=== PATIENT | female | born 1965 | race Caucasian/White ===

== ENCOUNTER 2019-08-02 13:26 | Outpatient (CLI) | payer OTHER, SELFPAY ==
--- NOTE | ~2019-08-02 | MM_ITS ---
EXAMINATION: MM screening tawana BI w arcenio HISTORY: Screening mammogram TECHNIQUE: Craniocaudal and mediolateral oblique 3-D tomosynthesis images were obtained and synthetic 2-D images were generated. CAD analysis was submitted and interpreted. COMPARISON: 08/09/2011, 07/03/2010 bilateral digital screening mammogram examinations BREAST PARENCHYMAL COMPOSITION: The breasts are heterogeneously dense, which may obscure small masses . FINDINGS: There is an approximately 8 x 10 mm low-density circumscribed mass in the inner aspect of t he lower outer quadrant of the left breast (craniocaudal Tomosynthesis image /; MLO Tomosynthesis image /). Diagnostic left mammogram and left breast ultrasound examination are recommended. Otherwise there Is no evidence of suspicious mass, calcification, or architectural distortion to sugg est malignancy in either breast. There has been no other significant interval change. IMPRESSION: 1. 8 x 10 mm lower-outer quadrant left breast circumscribed mass 2. Diagnostic left mammogram and left breast ultrasound examination are recommended. BI-RADS Category 0: Incomplete: Needs additional imaging evaluation. Reviewed, dictated and finalized at location A. IMPRESSION: 1. 8 x 10 mm lower-outer quadrant left breast circumscribed mass 2. Diagnostic left mammogram and left breast ultrasound examination are recomme nded. BI-RADS Category 0: Incomplete: Needs additional imaging evaluation.
--- NOTE | ~2019-08-02 | XR_ITS ---
EXAMINATION: XR knee LT min 4V, XR knee RT min 4V DATE: 08/02/2019 14:09 INDICATION: Bilateral knee pain TECHNIQUE: 1. Anteroposterior, oblique, sunrise and crosstable lateral views of the left knee were obtained. 2. Anteroposterior, oblique, sunrise and crosstable lateral views of the right knee were obtained. COMPARISON: None. FINDINGS: Alignment is normal at both knees. No fracture. Joint spaces at both knees appear relatively preserv ed on nonweightbearing imaging. No joint effusion/layering lipohemarthrosis. Soft tissues are unremar kable. IMPRESSION: 1. Negative bilateral knee radiographs. Reviewed, dictated and finalized at location A. IMPRESSION: 1. Negative bilateral knee radiographs.
== END 2019-08-02 13:27 | disposition home or self-care (01) ==
DX: Z12.31 Encounter for screening mammogram for malignant neoplasm of breast (principal); R92.8 Other abnormal and inconclusive findings on diagnostic imaging of breast; M25.561 Pain in right knee; M25.562 Pain in left knee
CPT/HCPCS: 73564; 77063; 77067

== ENCOUNTER 2019-08-16 11:11 | Outpatient (CLI) | payer OTHER, SELFPAY ==
--- NOTE | ~2019-08-16 | MMUS_ITS ---
EXAMINATION: MM diagnostic mammo unilat LT, US breast LT limited HISTORY: 8 x 10 mm lower outer quadrant left breast circumscribed mass on screening mammogram of 08/01 TECHNIQUE: Additional 3-D tomosynthesis images of the left breast were performed and synthetic 2-D im ages were generated. CAD analysis was submitted and interpreted. High resolution lower outer quadrant left breast ultrasound was performed. COMPARISON: 08/02/2019 bilateral digital screening mammogram FINDINGS: MAMMOGRAPHIC FINDINGS: Low-density circumscribed approximately 7 x 9 mm mass is confirmed in the lower inner quadrant of the left breast. ULTRASOUND: Lower outer quadrant left breast ultrasound reveals a 6 x 10 mm parallel circumscribed sonolucency wi th through transmission posterior enhancement and no internal vascularity at 4:00 position, consisten t with benign cyst. No other significant finding is noted. IMPRESSION: 1. Benign 6 x 10 mm 4:00 left breast cyst 2. Routine mammographic screening is recommended BI-RADS Category 2: Benign finding(s). Reviewed, dictated and finalized at location A. IMPRESSION: 1. Benign 6 x 10 mm 4:00 left breast cyst 2. Routine mammographic screening is recommended BI-RADS Category 2: Benign finding(s).
== END 2019-08-16 11:12 | disposition home or self-care (01) ==
DX: R92.8 Other abnormal and inconclusive findings on diagnostic imaging of breast (principal)
CPT/HCPCS: 76642; 77065

== ENCOUNTER 2019-11-22 07:53 | Outpatient (CLI) | payer OTHER, SELFPAY ==
--- NOTE | ~2019-11-22 | MR_ITS ---
EXAMINATION: MR lumbar spine wo con DATE: 11/22/2019 08:29 INDICATION: Low back pain TECHNIQUE: Magnetic resonance imaging (MRI) of the lumbar spine was performed without intravenous con trast. Sequences included sagittal T2-weighted FSE, sagittal T2-weighted FS FSE, sagittal T1-weighted FSE, and axial T2-weighted FSE. COMPARISON: None FINDINGS: Alignment is normal. Vertebral body heights are normal. There is marrow edema surrounding a small low signal intensity likely fracture line underlying a small portion of the posterior inferior endplate of L3 consistent with acutely developing Schmorl's node. Bone marrow signal is otherwise normal. Mild disc height loss at L2-L3 and L4-L5. Mild to moderate disc height loss at L3-L4. The conus medullari s terminates at L1-L2. There is normal signal in the caudal spinal cord. Paravertebral soft tissues a re unremarkable. The following disc levels are specifically discussed: T12-L1: Disc is minimally bulging. There is no facet joint osteoarthritis. There is no neural foramin al stenosis. There is no central canal stenosis. L1-L2: Disc is minimally bulging. There is no facet joint osteoarthritis. There is no neural foramina l stenosis. There is no central canal stenosis. L2-L3: Disc is mildly bulging. There is mild bilateral facet joint osteoarthritis. There is mild left neural foraminal stenosis. There is minimal central canal stenosis. L3-L4: Moderate diffuse disc bulge. There is mild bilateral facet joint osteoarthritis. There is mild bilateral neural foraminal stenosis. There is mild central canal stenosis. L4-L5: Disc is mildly bulging. There is mild right facet joint osteoarthritis. There is mild bilatera l neural foraminal stenosis. There is mild central canal stenosis. L5-S1: The disc does not extend beyond the endplate margin. There is mild bilateral facet joint osteo arthritis. There is mild right and minimal left neural foraminal stenosis. There is no central canal stenosis. IMPRESSION: 1. Marrow edema surrounding a small subendplate fracture line along the posterior inferior endplate o f L3 likely representing an acutely developing Schmorl's node. 2. Mild lumbar spondylosis. Reviewed, dictated and finalized at location A. IMPRESSION: 1. Marrow edema surrounding a small subendplate fracture line along the posteri or inferior endplate of L3 likely representing an acutely developing Schmorl's node. 2. Mild lumbar spondylosis.
== END 2019-11-22 07:54 ==
PROVIDERS: Visit Provider Orthopaedic Surgery
DX: M47.896 Other spondylosis, lumbar region (principal)
CPT/HCPCS: 72148

== ENCOUNTER 2020-03-27 12:29 | Outpatient (CLI) | payer OTHER, SELFPAY ==
[2020-03-27 13:31] LABS: LDL Cholesterol Direct 46 mg/dL
[2020-03-27 13:56] LABS: Vitamin D 25 Hydroxy 42.3 ng/mL
[2020-03-27 14:25] LABS: Alanine Aminotransferase 18 U/L (4-35); Albumin Level 4.8 g/dL (3.5-5.1); Alkaline Phosphatase 68 U/L (38-126); Anion Gap 10 mmol/L (8-16); Aspartate Amino Transferase 23 U/L (14-36); Bilirubin,Total 0.6 mg/dL (0.2-1.3); Blood Urea Nitrogen 15 mg/dL (7-17); Calcium 9.9 mg/dL (8.4-10.2); Carbon Dioxide 30 mmol/L (22-30); Chloride 99 mmol/L (98-107); Cholesterol 119 mg/dL (0-200); Estimated Glomerular Filt Rate > 60; Glucose 122 mg/dL (65-105); HDL Direct 44 mg/dL; Potassium 2.8 mmol/L (3.4-5.0); Sodium 139 mmol/L (137-145); Triglycerides 198 mg/dL (<150)
== END 2020-03-27 12:30 | disposition home or self-care (01) ==
LOC: ANHLAB 12:33
PROVIDERS: PCP Internal Medicine; Visit Provider Internal Medicine
DX: Z13.6 Encounter for screening for cardiovascular disorders (principal); Z79.899 Other long term (current) drug therapy; E78.5 Hyperlipidemia, unspecified; Z13.21 Encounter for screening for nutritional disorder
CPT/HCPCS: 36415; 80053; 80061; 82306

== ENCOUNTER 2020-05-22 13:30 | Outpatient (CLI) | payer OTHER, SELFPAY ==
--- NOTE | ~2020-05-22 | DEXA_ITS ---
Bone Density Report Name: Dominique East Age: 54 Sex: Female Ethnicity: White Date of : 1965 Indication: postmenopausal; prior fracture; hysterectomy; Referring Provider: INGRID HYATT Study: Bone densitometry was performed. Exam Date: May 22, 2020 Accession number: [id number] Bone Density: Region BMD T-score Z-score Classification AP Spine (L1-L4) 0.766 -2.6 -1.5 Osteoporosis Femoral Neck (Left) 0.615 -2.1 -1.1 Osteopenia Total Hip (Left) 0.741 -1.6 -1.0 Osteopenia Total Hip Bilateral Avg 0.739 -1.7 -1.0 Osteopenia Femoral Neck (Right) 0.572 -2.5 -1.5 Osteoporosis Total Hip (Right) 0.736 -1.7 -1.0 Osteopenia World Health Organization criteria for BMD impression classify patients as: Normal (T-score at or above -1.0), Osteopenia (T-score between -1.0 and -2.5), or Osteoporosis (T-score at or below -2.5). 10-year Fracture Risk: FRAX not reported because: Some T-score for Spine Total or Hip Total or Femoral Neck at or below -2.5 Prior hip or vertebral fracture Clinical Information Provided by Patient: Have had a previous hip or vertebral fracture Has had a low trauma fracture Smokes Has used the following medications: Calcium Has the following medical conditions: Hysterectomy Patient maximum height was 64 Menopause Age: 43 No regular weight bearing exercise Drinks caffeinated beverages Onset of menses at age 14 Number of children 0 Impression: The patient has established osteoporosis, based on the Total Spine T-score and the existence of a prior fracture. The patient has risk factors, including: smoking, previous fracture. Discussion: HIGH RISK OF FRACTURE. BONE DENSITY IS UNDESIRABLY LOW AT ONE OR MORE SKELETAL SITES, CONSISTENT WITH POSTMENOPAUSAL OSTEOPOROSIS. This patient's lowest T-score, in a patient who has previously fractured, meets the World Health Organization's (WHO) criteria for severe osteoporosis. In untreated patients, the risk of osteoporotic fracture increases approximately two-fold for each 1.0 SD decrease in T-score. Low bone density is not the only risk factor for fracture; also consider factors such as patient's age, frailty or poor health, risk of falling, risk of injury, previous osteoporotic fracture, family history of osteoporosis, cigarette smoking, low body weight, etc. Not everyone with low bone mineral density has osteoporosis; osteomalacia and other metabolic bone disorders should also be considered. Patients who have osteoporosis should be evaluated for specific diseases and conditions (secondary causes) that may cause or contribute to bone loss. The [place] Association [employer] Clinical Endocrinologists (AACE) and National Osteoporosis Foundation (NOF) recommend pharmacologic intervention for all postmenopausal women with a previous hip or vertebral fracture and a T-score in this r
== END 2020-05-22 13:31 | disposition home or self-care (01) ==
LOC: ANHIMG 13:40
PROVIDERS: PCP Internal Medicine; Visit Provider Internal Medicine
DX: M81.0 Age-related osteoporosis without current pathological fracture (principal); M85.851 Other specified disorders of bone density and structure, right thigh; M85.852 Other specified disorders of bone density and structure, left thigh
CPT/HCPCS: 77080

== ENCOUNTER 2020-06-27 11:14 | Outpatient (CLI) | payer OTHER, SELFPAY ==
--- NOTE | ~2020-06-27 | XR_ITS ---
XR chest 2V DATE: 06/27/2020 11:51 INDICATION: Cough TECHNIQUE: PA and lateral views COMPARISON: 12/25/2007 two-view chest FINDINGS: Normal heart size. No hilar or mediastinal enlargement. Mild bilateral apical scarring. Old pulmonary granulomatous disease. No active infiltrate or consolidation, pleural effusion or pulmonary vascular congestion or pneumotho rax is detected. Diffuse osteopenia. Mild dextroscoliosis and degenerative spurring of the thoracic spine. IMPRESSION: No active cardiopulmonary disease or significant change since 12/25/2007 Reviewed, dictated and finalized at location B. PRESIDENT QUALITY IMPRESSION: No active cardiopulmonary disease or significant change since 2007
[2020-06-27 11:55] LABS: Anion Gap 9 mmol/L (8-16); Blood Urea Nitrogen 6 mg/dL (7-17); Carbon Dioxide 28 mmol/L (22-30); Chloride 104 mmol/L (98-107); Estimated Glomerular Filt Rate > 60; Glucose 122 mg/dL (65-105); Potassium 3.4 mmol/L (3.4-5.0); Sodium 141 mmol/L (137-145)
== END 2020-06-27 11:15 | disposition home or self-care (01) ==
PROVIDERS: PCP Internal Medicine; Visit Provider Internal Medicine
DX: E87.6 Hypokalemia (principal); R05 Cough
CPT/HCPCS: 36415; 71046; 80048

== ENCOUNTER 2020-10-30 09:09 | Outpatient (CLI) | payer SELFPAY ==
[2020-10-30 10:05] LABS: Alanine Aminotransferase 36 U/L (4-35); Albumin Level 4.7 g/dL (3.5-5.1); Alkaline Phosphatase 83 U/L (38-126); Anion Gap 10 mmol/L (8-16); Aspartate Amino Transferase 40 U/L (14-36); Bilirubin,Total 0.5 mg/dL (0.2-1.3); Blood Urea Nitrogen 7 mg/dL (7-17); Calcium 9.4 mg/dL (8.4-10.2); Carbon Dioxide 26 mmol/L (22-30); Chloride 105 mmol/L (98-107); Cholesterol 144 mg/dL (0-200); Estimated Glomerular Filt Rate > 60; Glucose 105 mg/dL (65-105); HDL Direct 41 mg/dL; Potassium 4.3 mmol/L (3.4-5.0); Sodium 141 mmol/L (137-145); Triglycerides 228 mg/dL (<150)
[2020-10-30 10:16] LABS: LDL Cholesterol Direct 71 mg/dL
== END 2020-10-30 09:10 | disposition home or self-care (01) ==
PROVIDERS: PCP Internal Medicine; Visit Provider Internal Medicine
DX: E78.5 Hyperlipidemia, unspecified (principal); E87.6 Hypokalemia; Z79.899 Other long term (current) drug therapy
CPT/HCPCS: 36415; 80053; 80061

== ENCOUNTER 2021-02-18 13:24 | Outpatient (CLI) | payer BC, SELFPAY ==
--- NOTE | ~2021-02-18 | XR_ITS ---
XR chest 2V DATE: 02/18/2021 13:54 INDICATION: Cough. Left breast mass. Smoker. Asthma. TECHNIQUE: PA and lateral views COMPARISON: June 27, 2020 2 view chest FINDINGS: Normal heart size. No hilar or mediastinal enlargement. There is evidence of old pulmonary granulomatous disease. Chronic bilateral apical scarring. No pulmonary infiltrate or consolidation, p leural effusion or pulmonary vascular congestion or pneumothorax is detected. Diffuse osteopenia. IMPRESSION: No active cardiopulmonary disease Reviewed, dictated and finalized at location B.
== END 2021-02-18 13:25 | disposition home or self-care (01) ==
LOC: ANHIMG 13:34
PROVIDERS: PCP Internal Medicine; Visit Provider Internal Medicine
DX: R05.9 Cough, unspecified (principal)
CPT/HCPCS: 71046

== ENCOUNTER 2021-03-13 09:32 | Outpatient (CLI) | payer BC, SELFPAY ==
--- NOTE | ~2021-03-13 | MM_ITS ---
EXAMINATION: MM screening tawana BI w arcenio HISTORY: Screening TECHNIQUE: Craniocaudal and mediolateral oblique 3-D tomosynthesis images were obtained and synthetic 2-D images were generated. CAD analysis was submitted and interpreted. COMPARISON: Comparison to multiple prior studies sequentially, with oldest reviewed study dated 06/2011. BREAST PARENCHYMAL COMPOSITION: The breasts are heterogeneously dense, which may obscure small masses . FINDINGS: There is no evidence of suspicious mass, calcification, or architectural distortion to sugg est malignancy in either breast. There has been no suspicious interval change. IMPRESSION: 1. No mammographic evidence of malignancy. 2. Recommend routine screening mammography in one year. BI-RADS Category 1: Negative Reviewed, dictated and finalized at location A.
== END 2021-03-13 09:33 | disposition home or self-care (01) ==
LOC: ANHIMG 09:35
PROVIDERS: PCP Internal Medicine; Visit Provider Nurse Practitioner
DX: Z12.31 Encounter for screening mammogram for malignant neoplasm of breast (principal); N60.09 Solitary cyst of unspecified breast
CPT/HCPCS: 77063; 77067

== ENCOUNTER 2021-03-30 15:17 | Outpatient (CLI) | payer BC, SELFPAY ==
--- NOTE | ~2021-03-30 | XR_ITS ---
XR lumbar spine 2-3V 03/30/2021 15:47 Indication: Low back pain. L3 fracture seen on prior MRI. Procedure: 3 views of the lumbar spine Comparison: Lumbar spine series dated 05/24/2019 and MRI dated 11/22/2019 Findings: There is mild levocurvature of the lumbar spine centered at L3-4. There is disc narrowing a t L2-3 and L3-4. Pedicles intact. No acute fracture or traumatic malalignment. No evidence for spondy lolisthesis. Impression: 1: Mild lumbar spondylosis with levocurvature of the lumbar spine. Previously visualized endplate fra cture at L3 is not identified on x-ray. Reviewed, dictated and finalized at location A. ROLLER Impression: 1: Mild lumbar spondylosis with levocurvature of the lumbar spine. Previously v isualized endplate fracture at L3 is not identified on x-ray.
== END 2021-03-30 15:18 | disposition home or self-care (01) ==
PROVIDERS: PCP Internal Medicine; Visit Provider Internal Medicine
DX: M47.896 Other spondylosis, lumbar region (principal)
CPT/HCPCS: 72100

== ENCOUNTER 2021-04-13 11:05 | Outpatient (RCR) | payer BC, SELFPAY ==
--- NOTE | 2021-04-13 11:42 | PTOPEVAL ---
Thank you for referring Dominique East to [facility] [place] The patient is scheduled to be seen for therapy? __3__x/week for 9 visits. Please review, sign, date and return this plan of care SUSY. I agree with and certify that the following plan of care is medically necessary. Referring Physician Date Admitting Provider: Attending Provider: Dmitriy Maddox DO Referring Provider: *PT Outpatient Evaluation Start: 04/13/21 11:11 Freq: Status: Active Protocol: Document 04/13/21 11:12 FREDO (Rec: 04/13/21 11:41 FREDO [id number]) Therapy Assessment Status Assessment Status Assessment Status Evaluation Outpatient Past Medical History Neurological History Hx Other Neurological Disorders Yes: LT. SIDED FACIAL DROOPING FROM [facility] Musculoskeletal History Hx Arthritis Yes: RT. KNEE Hx Orthopedic Surgery Yes: LT. UPPER ARM, SKULL FX Hx Osteoporosis Yes Reproductive History Hx Endometriosis Yes Hx Post Menopausal Yes Psychosocial History Hx Depression Yes: NO CURRENT MEDS Evaluation Information Problem Diagnosis low back pain Onset 03/26/21 Subjective Information Pt. reports on 03/26/21 she Query Text:As Reported By Patient/ woke at night. She reports Family that she had dizziness upon standing up and fell onto her back. She reports that she was able to get herself up. Called her doctor the next morning. She immediately underwent xray which showed no results. She reports that she has been given pain medication, which does give her slight relief. She reports that her low back pain is increased with any moving, bending or reaching. She reports that she cannot lay flat due to pain. She is currently on a lifting restriction. she stastes that her goal is to decrease her pain with standing and walking activities. Diagnostic Tests X-Rays For This Problem Yes Prior Level of Function Activity Level (Last 3 Months) Occupation unemployed Hand Dominance Right Activity of Daily Living Ability Independent Indoor/Home Mobility Independent Community Mob
--- NOTE | 2021-04-28 10:58 | PTOPEVAL ---
Thank you for referring Dominique East to [facility].? The patient is scheduled to be seen for therapy? ____x/week for ___ weeks. Please review, sign, date and return this plan of care SUSY. I agree with and certify that the following plan of care is medically necessary. Referring Physician Date Admitting Provider: Attending Provider: Dmitriy Maddox DO Referring Provider: *PT Outpatient Evaluation Start: 04/13/21 11:11 Freq: Status: Active Protocol: Document 04/28/21 10:01 ACR (Rec: 04/28/21 10:58 ACR [id number]) Therapy Assessment Status Assessment Status Assessment Status Discharge Outpatient Past Medical History Neurological History Hx Other Neurological Disorders Yes: LT. SIDED FACIAL DROOPING FROM [facility] Musculoskeletal History Hx Arthritis Yes: RT. KNEE Hx Orthopedic Surgery Yes: LT. UPPER ARM, SKULL FX Hx Osteoporosis Yes Reproductive History Hx Endometriosis Yes Hx Post Menopausal Yes Psychosocial History Hx Depression Yes: NO CURRENT MEDS Evaluation Information Problem Diagnosis low back pain Onset 03/26/21 Subjective Information Patient reports that she is Query Text:As Reported By Patient/ about the same since she began Family therapy. She states that she still has difficulty with laying on her back and sleeps in her recliner still. She states that she still has to keep moving because if she stays in one place she has a lot of pain. Pain Assessment Timing of Pain Assessment Timing of Pain Assessment Assessment Pain Scale Pain Scale Used Numeric (1 - 10) Self Report Pain Assessment Lower Back Reported Pain Level 8 Greatest Pain Intensity 10 Pain Score Pain Score 8: Self Report Interventions Used Interventions Used By Clinicians Activity or ADL's,Electrical Stimulation,Exercise,Heat, Manual Therapy Techniques Cervical and Lumbar ROM Lumbar ROM Lumbar Flexion Active [place] Query Text:Hands to: Lumbar Extension (0-40) 20 Query Text:Active in Degrees Lumbar Lateral Flexion Right (0-40) 25 Query Text:Active in Degrees Lumbar Lateral Flexion Left (0-40) 25 Query Text:Active in Degrees Lower Extremity Muscle Strength Testing General Lower Extremity Strength Gross Lower Extremity Strength B hip flexion: 4+/5 B hip abduction: 4+/5
--- NOTE | 2021-06-04 15:37 | PTOPEVAL ---
Thank you for referring Dominique East to [facility].? The patient is scheduled to be seen for therapy? __2__x/week for 4 visits. Please review, sign, date and return this plan of care SUSY. I agree with and certify that the following plan of care is medically necessary. Referring Physician Date Admitting Provider: Attending Provider: Dmitriy Maddox DO Referring Provider: *PT Outpatient Evaluation Start: 04/13/21 11:11 Freq: Status: Active Protocol: Document 06/03/21 11:00 FREDO (Rec: 06/04/21 15:37 FREDO [email or web address]) Therapy Assessment Status Assessment Status Assessment Status Re-evaluation Outpatient Past Medical History Neurological History Hx Other Neurological Disorders Yes: LT. SIDED FACIAL DROOPING FROM [facility] Musculoskeletal History Hx Arthritis Yes: RT. KNEE Hx Orthopedic Surgery Yes: LT. UPPER ARM, SKULL FX Hx Osteoporosis Yes Reproductive History Hx Endometriosis Yes Hx Post Menopausal Yes Psychosocial History Hx Depression Yes: NO CURRENT MEDS Evaluation Information Problem Diagnosis low back pain, right shoulder pain Subjective Information Pt. enters the clinic Query Text:As Reported By Patient/ reporting that she visited Family with her doctor recently who suggested she begin treatment on her right shoulder in conjunction with her low back. She reports she recently developed pain described around the right shoulder blade. She reports pain with reaching overhead or behind her back with the right arm. She reports that she is having trouble sleeping due to shoulder pain. She reports that her back is improved slightly, but her focus is more on her shoulder currently . Pain Assessment Pain Scale Pain Scale Used Numeric (1 - 10) Self Report Pain Assessment Right Scapula Reported Pain Level 9 Pain Description Aching Pain Aggravating Factors Exercise/Activity,Lifting Pain Behaviors Grimacing,Guarding,Teary Eyed/ Crying Lower Back Reported Pain Level 4 Pain Score Pain Score 4,9: Self Report Interventions Used Interventions Used By Clinicians Elec
== END 2021-06-18 10:25 | disposition home or self-care (01) ==
LOC: CHSPT 11:05
PROVIDERS: PCP Internal Medicine; Visit Provider Internal Medicine
DX: M54.50 Low back pain, unspecified (principal); G89.29 Other chronic pain
CPT/HCPCS: 97014; 97110; 97140; 97161; G0283

== ENCOUNTER → 2021-05-23 02:30 | Outpatient (CLI) | payer BC, SELFPAY ==
[2021-05-23 18:35] LABS: Influenza A QL RT-PCR Negative (Negative); Influenza B QL RT-PCR Negative (Negative); SARS-CoV-2 RNA PCR Negative
== END ==
PROVIDERS: PCP Internal Medicine; Visit Provider Internal Medicine
DX: R68.89 Other general symptoms and signs (principal); Z20.822 Contact with and (suspected) exposure to COVID-19
CPT/HCPCS: 87502; 87804; C9803; U0003; U0005

== ENCOUNTER 2021-05-27 12:10 | Outpatient (CLI) | payer BC, SELFPAY ==
--- NOTE | ~2021-05-27 | XR_ITS ---
XR scapula RT DATE: 05/27/2021 12:47 INDICATION: Right shoulder pain. No known injury. TECHNIQUE: 3 views of right scapula COMPARISON: None FINDINGS: No fracture or bone destruction of the scapula. Normal alignment at the acromioclavicular a nd glenohumeral joints. No abnormal right shoulder soft tissue calcification is noted. IMPRESSION: Negative right scapula Reviewed, dictated and finalized at location A. OLOGIST IMPRESSION: Negative right scapula
--- NOTE | ~2021-05-27 | XR_ITS ---
XR thoracic spine 3V DATE: 05/27/2021 12:47 INDICATION: Back pain. No known injury. TECHNIQUE: AP, lateral and swimmer views COMPARISON: None FINDINGS: Diffuse osteopenia. Degenerative disc disease at C6-7 and especially C5-6. There is mild dextroscoliosis of the upper thoracic spine. No fracture or dislocation or bone destruction. The thoracic pedicles are intact. No paraspinal sof t tissue thickening IMPRESSION: Mild scoliosis Osteopenia Reviewed, dictated and finalized at location A. OSIVES HANDLER IMPRESSION: Mild scoliosis Osteopenia
[2021-05-27 12:54] LABS: Alanine Aminotransferase 32 U/L (4-35); Albumin Level 4.5 g/dL (3.5-5.1); Alkaline Phosphatase 66 U/L (38-126); Anion Gap 7 mmol/L (8-16); Aspartate Amino Transferase 40 U/L (14-36); Bilirubin,Total 0.4 mg/dL (0.2-1.3); Blood Urea Nitrogen 14 mg/dL (7-17); Calcium 9.3 mg/dL (8.4-10.2); Carbon Dioxide 29 mmol/L (22-30); Chloride 103 mmol/L (98-107); Cholesterol 133 mg/dL (0-200); Estimated Glomerular Filt Rate > 60; Glucose 126 mg/dL (65-110); HDL Direct 31 mg/dL; Potassium 3.9 mmol/L (3.4-5.0); Sodium 139 mmol/L (137-145); Triglycerides 266 mg/dL (<150)
[2021-05-27 13:05] LABS: LDL Cholesterol Direct 68 mg/dL
[2021-05-27 13:35] LABS: Vitamin D 25 Hydroxy 44.2 ng/mL
== END 2021-05-27 12:11 | disposition home or self-care (01) ==
PROVIDERS: PCP Internal Medicine; Visit Provider Nurse Practitioner
DX: E78.5 Hyperlipidemia, unspecified (principal); M89.8X1 Other specified disorders of bone, shoulder; M54.9 Dorsalgia, unspecified; F32.A Depression, unspecified; M85.88 Other specified disorders of bone density and structure, other site; M41.84 Other forms of scoliosis, thoracic region
CPT/HCPCS: 36415; 72072; 73010; 80053; 80061; 82306; 84443

== ENCOUNTER 2021-06-22 11:54 | Outpatient (CLI) | payer BC, SELFPAY ==
--- NOTE | ~2021-06-22 | XR_ITS ---
EXAMINATION: XR chest 2V DATE: 06/22/2021 12:17 INDICATION: Dorsalgia. Weakness. Flulike symptoms. TECHNIQUE: Frontal and lateral views of the chest were obtained. COMPARISON: Chest 2 views 02/18/2021 FINDINGS: There is mild scarring at the lung apices. A calcified left lung nodule and calcified left hilar lymph nodes are consistent with old granulomatous disease. No pleural effusion or pneumothorax. The heart size is normal. IMPRESSION: 1. Stable mild scarring at the lung apices. Reviewed, dictated and finalized at location A. ICULTURE SUPERVISOR
== END 2021-06-22 11:55 | disposition home or self-care (01) ==
PROVIDERS: PCP Internal Medicine; Visit Provider Internal Medicine
DX: M54.9 Dorsalgia, unspecified (principal); R91.8 Other nonspecific abnormal finding of lung field
CPT/HCPCS: 71046

== ENCOUNTER 2021-08-25 13:50 | Outpatient (RCR) | payer BC, SELFPAY ==
--- NOTE | 2021-08-25 15:14 | PTOPEVAL ---
Thank you for referring Dominique East to [facility] [place].? The patient is scheduled to be seen for therapy? ____x/week for ___ weeks. Please review, sign, date and return this plan of care SUSY. I agree with and certify that the following plan of care is medically necessary. Referring Physician Date Admitting Provider: Attending Provider: Dmitriy Maddox DO Referring Provider: *PT Outpatient Evaluation Start: 08/25/21 14:06 Freq: Status: Active Protocol: Document 08/25/21 14:05 [facility] (Rec: 08/25/21 15:13 [facility] [email or web address]) Therapy Assessment Status Assessment Status Assessment Status Evaluation Outpatient Past Medical History Neurological History Hx Other Neurological Disorders Yes: LT. SIDED FACIAL DROOPING FROM [facility] Musculoskeletal History Hx Arthritis Yes: RT. KNEE Hx Orthopedic Surgery Yes: LT. UPPER ARM, SKULL FX Hx Osteoporosis Yes Reproductive History Hx Endometriosis Yes Hx Post Menopausal Yes Psychosocial History Hx Depression Yes: NO CURRENT MEDS Evaluation Information Problem Diagnosis lower back and L LE pain Onset 08/11/21 Additional Evaluation Detail oswestry = 84% functionally declined Subjective Information patient reports she is back in Query Text:As Reported By Patient/ therapy due to her insurance Family refusing an MRI without another round of skilled PT on the lower back for 6 weeks. she reports she has increased pain, has crunching, and difficulty getting up from a chair. she reports she also has difficulty with standing and walking. she reports she is using a walker all the time (walker is at home). she reports she had falls and has fallen as recently as . she reports she has pain down both legs, but reports the L LE is worse. she reports she has mm spasms in the back and legs, and numbness in the L more than R LE. Prior Level of Function Comments Additional Prior Level of Function patient reports she has been Comments progressively getting worse for several months. she reports she w
--- NOTE | 2021-09-30 15:25 | PTOPEVAL ---
Thank you for referring Dominique East to [facility] The patient is scheduled to be seen for therapy? ____x/week for ___ weeks. Please review, sign, date and return this plan of care SUSY. I agree with and certify that the following plan of care is medically necessary. Referring Physician Date Admitting Provider: Attending Provider: Dmitriy Maddox DO Referring Provider: *PT Outpatient Evaluation Start: 08/25/21 14:06 Freq: Status: Active Protocol: Document 09/30/21 11:05 [facility] (Rec: 09/30/21 15:25 [facility] [id number]) Therapy Assessment Status Assessment Status Assessment Status Discharge Outpatient Past Medical History Neurological History Hx Other Neurological Disorders Yes: LT. SIDED FACIAL DROOPING FROM AA Musculoskeletal History Hx Arthritis Yes: RT. KNEE Hx Orthopedic Surgery Yes: LT. UPPER ARM, SKULL FX Hx Osteoporosis Yes Reproductive History Hx Endometriosis Yes Hx Post Menopausal Yes Psychosocial History Hx Depression Yes: NO CURRENT MEDS Evaluation Information Problem Diagnosis lower back and L LE pain Onset 08/11/21 Additional Evaluation Detail oswestry = 80% functionally declined Subjective Information patient reports she does not Query Text:As Reported By Patient/ feel much changed since Family beginning therapy. she reports she continues to have lower back and L LE pain. she reports she continues to have episodes of worsening pain. she reports she was unable to sleep last night due to pain in the lower back. Pain Assessment Timing of Pain Assessment Timing of Pain Assessment Assessment Pain Scale Pain Scale Used Numeric (1 - 10) Self Report Pain Assessment Lower Back Reported Pain Level 10 Greatest Pain Intensity 10 Pain Score Pain Score 10: Self Report Interventions Used Interventions Used By Clinicians Activity or ADL's,Education, Electrical Stimulation,Heat, Medication,Rest Cervical and Lumbar ROM Lumbar ROM Lumbar Flexion Active Knee Query Text:Hands to: Lumbar Extension (0-40) 0 Query Text:Active in Degrees Lumbar Comments continued patient reports of increased pain with lumbar flexion. Cervical and Lumbar Muscle Testing Lumbar Strength Upper Abdominal Strength 3+F
== END 2021-09-30 16:28 | disposition home or self-care (01) ==
LOC: CHSPT 13:50
PROVIDERS: Visit Provider Internal Medicine
DX: M54.50 Low back pain, unspecified (principal); G89.29 Other chronic pain
CPT/HCPCS: 97014; 97110; 97140; 97162; G0283

== ENCOUNTER 2021-10-27 09:46 | Outpatient (CLI) | payer BC, SELFPAY ==
--- NOTE | ~2021-10-27 | MR_ITS ---
EXAMINATION: MR lumbar spine wo con DATE: 10/27/2021 10:22 INDICATION: R20.0 - Anesthesia of skin . TECHNIQUE: Magnetic resonance imaging (MRI) of the lumbar spine was performed without intravenous con trast. Sequences included sagittal T2-weighted FSE, sagittal T2-weighted FS FSE, sagittal T1-weighted FSE, and axial T2-weighted FSE. COMPARISON: X-ray lumbar spine 03/30/2021. MRI lumbar spine 11/22/2019 FINDINGS: The last fully formed and hydrated disc is designated L5-S1. The marrow signal is somewhat heterogeneous but not infiltrative or masslike in appearance, may reflect some degree of reconversion or metabolic change. Conus terminates at L2. Multilevel disc dehydration. The following disc levels are specifically discussed: T11-T12: The disc does not extend beyond the endplate margin. There is no facet joint osteoarthritis. There is no neural foraminal stenosis. There is no central canal stenosis. T12-L1: The disc does not extend beyond the endplate margin. There is mild facet joint osteoarthritis . There is no neural foraminal stenosis. There is no central canal stenosis. L1-L2: The disc does not extend beyond the endplate margin. There is mild facet joint osteoarthritis. There is no neural foraminal stenosis. There is no central canal stenosis. L2-L3: Mild diffuse bulge. There is mild facet joint osteoarthritis. There is mild bilateral neural f oraminal stenosis. There is no central canal stenosis. L3-L4: Large somewhat bilobed appearing diffuse disc bulge. There is moderate facet joint osteoarthri tis. There is moderate bilateral neural foraminal stenosis. There is no central canal stenosis. L4-L5: Mild diffuse bulge. There is moderate facet joint osteoarthritis. There is mild left neural fo raminal stenosis. There is no central canal stenosis. L5-S1: Mild diffuse bulge. There is mild facet joint osteoarthritis. There is no neural foraminal sukhdeep nosis. There is no central canal stenosis. IMPRESSION: 1. Moderate bilateral L3-4 neural foraminal narrowing. 2. Moderate facet arthropathy at L3-4 and L4-5. 3. No severe central canal or neural foraminal narrowing. 4. Mildly heterogeneous marrow signal may reflect marrow reconversion or metabolic change. Reviewed, dictated and finalized at location K. IMPRESSION: 1. Moderate bilateral L3-4 neural foraminal narrowing. 2. Moderate facet arthropathy at L3-4 and L4-5. 3. No severe central canal or neural foraminal narrowing. 4. Mildly heterogeneous marrow signal may reflect marrow reconversion or metabo lic change.
== END 2021-10-27 09:47 | disposition home or self-care (01) ==
PROVIDERS: PCP Internal Medicine; Visit Provider Nurse Practitioner
DX: R20.0 Anesthesia of skin (principal)
CPT/HCPCS: 72148

== ENCOUNTER 2021-12-08 08:26 | Outpatient (CLI) | payer SELFPAY ==
[2021-12-08 08:55] LABS: Alanine Aminotransferase 34 U/L (6-35); Albumin Level 4.5 g/dL (3.5-5.1); Alkaline Phosphatase 79 U/L (38-126); Anion Gap 10 mmol/L (8-16); Aspartate Amino Transferase 41 U/L (14-36); Bilirubin,Total 0.5 mg/dL (0.2-1.3); Blood Urea Nitrogen 10 mg/dL (7-17); Calcium 8.9 mg/dL (8.4-10.2); Carbon Dioxide 29 mmol/L (22-30); Chloride 103 mmol/L (98-107); Cholesterol 129 mg/dL (0-200); Estimated Glomerular Filt Rate > 60; Glucose 114 mg/dL (65-110); HDL Direct 32 mg/dL; Potassium 3.9 mmol/L (3.4-5.0); Sodium 142 mmol/L (137-145); Triglycerides 183 mg/dL (<150)
[2021-12-08 09:06] LABS: LDL Cholesterol Direct 62 mg/dL
[2021-12-08 10:12] LABS: Vitamin D 25 Hydroxy 60.3 ng/mL
== END 2021-12-08 08:27 | disposition home or self-care (01) ==
LOC: ANHLAB 08:27
PROVIDERS: PCP Internal Medicine; Visit Provider Nurse Practitioner
DX: E78.5 Hyperlipidemia, unspecified (principal); Z13.21 Encounter for screening for nutritional disorder; F32.A Depression, unspecified
CPT/HCPCS: 36415; 80053; 80061; 82306; 84443

== ENCOUNTER 2022-03-11 11:03 | Outpatient (CLI) | payer OTHER, SELFPAY ==
--- NOTE | ~2022-03-11 | XR_ITS ---
EXAMINATION: XR hip LT min 2V DATE: 03/11/2022 11:46 INDICATION: Left hip pain TECHNIQUE: Anteroposterior and frog-leg lateral views of the left hip were obtained. COMPARISON: None. FINDINGS: Alignment is normal. No fracture or suspected avascular necrosis. Joint spaces are normal. Soft tissu es are unremarkable. IMPRESSION: 1. Negative left hip radiographs. Reviewed, dictated and finalized at location B.
== END 2022-03-11 11:04 | disposition home or self-care (01) ==
LOC: ANHIMG 11:10
PROVIDERS: PCP Internal Medicine; Visit Provider Internal Medicine
DX: M25.552 Pain in left hip (principal)
CPT/HCPCS: 73502

== ENCOUNTER 2022-06-10 13:33 | Outpatient (CLI) | payer OTHER, SELFPAY ==
[2022-06-10 14:11] LABS: Alanine Aminotransferase 28 U/L (6-35); Albumin Level 4.3 g/dL (3.5-5.1); Alkaline Phosphatase 77 U/L (38-126); Anion Gap 6 mmol/L (8-16); Aspartate Amino Transferase 45 U/L (14-36); Bilirubin,Total 0.8 mg/dL (0.2-1.3); Blood Urea Nitrogen 12 mg/dL (7-17); Calcium 8.9 mg/dL (8.4-10.2); Carbon Dioxide 28 mmol/L (22-30); Chloride 106 mmol/L (98-107); Cholesterol 115 mg/dL (0-200); Estimated Glomerular Filt Rate > 60; Glucose 131 mg/dL (65-110); HDL Direct 29 mg/dL; Potassium 3.6 mmol/L (3.4-5.0); Sodium 140 mmol/L (137-145); Triglycerides 149 mg/dL (<150)
[2022-06-10 14:22] LABS: LDL Cholesterol Direct 57 mg/dL
== END 2022-06-10 13:34 | disposition home or self-care (01) ==
PROVIDERS: PCP Internal Medicine; Visit Provider Internal Medicine
DX: E78.5 Hyperlipidemia, unspecified (principal); Z79.899 Other long term (current) drug therapy; E03.9 Hypothyroidism, unspecified
CPT/HCPCS: 36415; 80053; 80061; 84443

== ENCOUNTER 2022-07-23 15:06 | Outpatient (CLI) | payer OTHER, SELFPAY ==
--- NOTE | ~2022-07-23 | MM_ITS ---
MM screening [facility] BI w arcenio DATE: 07/23/2022 15:28 INDICATION: Screening TECHNIQUE: Craniocaudal and mediolateral oblique 3-D tomosynthesis images were obtained and synthetic 2-D images were generated. CAD analysis was submitted and interpreted. COMPARISON: 03/13/2021 bilateral screening mammogram 08/16/2019 diagnostic left mammogram and limited left breast ultrasound 08/02/2019 bilateral screening mammogram BREAST PARENCHYMAL COMPOSITION: There are scattered areas of fibroglandular density. FINDINGS: There is no evidence of suspicious mass, calcification, or architectural distortion to sugg est malignancy in either breast. There has been no suspicious interval change. IMPRESSION: 1. No mammographic evidence of malignancy. 2. Recommend routine screening mammography in one year. BI-RADS Category 1: Negative Reviewed, dictated and finalized at location A.
== END 2022-07-23 15:07 | disposition home or self-care (01) ==
LOC: ANHIMG 15:07
PROVIDERS: PCP Internal Medicine; Visit Provider Internal Medicine
DX: Z12.31 Encounter for screening mammogram for malignant neoplasm of breast (principal)
CPT/HCPCS: 77063; 77067

== ENCOUNTER 2022-12-07 13:20 | Outpatient (RCR) | payer OTHER, SELFPAY ==
--- NOTE | 2022-12-07 14:29 | OPREHPOC ---
Outpatient Therapy Plan of Care This is a Multidisciplinary Plan of Care that may contain components documented by all disciplines (PT, OT, and ST.) PT Problem 1 PT Problem #1 Knowledge Deficit PT Goal 1 Goal Patient to demonstrate independence with HEP Target Visit 5 PT Problem 2 PT Problem #2 Pain PT Goal 1 Goal 1. Patient to demonstrate independence with HEP 2. Patient to report no sleep disturbance due to R shoulder pain Target Visit 10 PT Problem 3 PT Problem #3 Impaired Range of Motion PT Goal 1 Goal Patient to demonstrate 140 degrees of R shoulder flexion to be able to complete house hold tasks Target Visit 10 PT Problem 4 PT Problem #4 Impaired Strength PT Goal 1 Goal Patient to demonstrate 4/5 strength of R shoulder to improve ability to complete house hold tasks at PLOF Target Visit 10 PT Problem 5 PT Problem #5 Impaired Functional Mobil PT Goal 1 Goal 1. Patient to report ability to dress and bathe with no increase in pain 2. Patient to report ability to write with no increase in R shoulder pain Target Visit 10
--- NOTE | 2022-12-07 14:29 | PTOPEVAL1 ---
Assessment and note entered by Yamile Yeager DPT Evaluation Information Assessment Status Evaluation Diagnosis R shoulder Onset 09/25/22 Subjective Information Patient reports around the 25 of September she noticed some soreness. She reports that pain then got worse and say her PCP in October. She was then referred to Ortho who diagnosed her with adhesive capsuitis. She reports difficulty with dressing, bathing, writing, and complete house hold chores. Prior she was able to do these activities with no limitations. She reports she returns to MD in 6 weeks. Reported Pain Level Pain Score 8: Self Report Assessment PT Clinical Summary Patient is a 57 year old female who presents to PT with R shoulder pain. Patient demonstrates decreased R shoulder ROM, decreased R shoulder strength and increase pain limiting her ability to dress, bathe, cook, write and performing house hold chores. Patient would benefit from skilled PT to address impairments and return to PLOF. Plan of Care Interventions Electrical Stimulation,Hot Pack/Cold Pack,Manual Therapy,Neuro Re-education,Patient/Caregiver Educati,Therapeutic Activities,Therapeutic Exercise PT Services Indicated Yes Treatment Frequency and 2x weekly for 10 visits Duration These treatments will address the objective and functional deficits as defined above. The patient will be advanced safely and appropriately in order for the patient to progress towards his/her prior level of function. Additional exercises will be introduced and as well as a comprehensive home exercise program upon discharge, if needed, ?to ensure carryover of functional gains achieved in the clinic. This treatment plan has been reviewed and agreement upon by the patient.
--- NOTE | 2023-01-21 11:32 | OPREHPOC ---
Outpatient Therapy Plan of Care This is a Multidisciplinary Plan of Care that may contain components documented by all disciplines (PT, OT, and ST.) PT Problem 1 PT Problem #1 Knowledge Deficit PT Goal 1 Goal Patient to demonstrate independence with HEP Target Visit 5 Progress Met PT Problem 2 PT Problem #2 Pain PT Goal 1 Goal 1. Patient to demonstrate independence with HEP 2. Patient to report no sleep disturbance due to R shoulder pain Target Visit 10 Progress Met PT Problem 3 PT Problem #3 Impaired Range of Motion PT Goal 1 Goal Patient to demonstrate 140 degrees of R shoulder flexion to be able to complete house hold tasks Target Visit 10 Progress Met PT Problem 4 PT Problem #4 Impaired Strength PT Goal 1 Goal Patient to demonstrate 4/5 strength of R shoulder to improve ability to complete house hold tasks at PLOF Target Visit 10 Progress Met PT Problem 5 PT Problem #5 Impaired Functional Mobil PT Goal 1 Goal 1. Patient to report ability to dress and bathe with no increase in pain 2. Patient to report ability to write with no increase in R shoulder pain Target Visit 10 Progress Met
--- NOTE | 2023-01-21 11:32 | PTOPDC ---
Assessment and note entered by Yamile Yeager DPT Evaluation Information Assessment Status Re-evaluation Diagnosis R shoulder Onset 09/25/22 Subjective Information Since starting PT she reports shoulder has been feeling a lot better. She reports she has noticed an improved ROM, improved ability to dress and improved ability to bathe. She reports MD was happy with progress. She reports her shoulder does not limit her from any activity. She reports she thinks she is ready to DC Reported Pain Level Pain Score 4: Self Report Assessment PT Clinical Summary Patient was seen for 10 visits of skilled PT with all goals met. Patient reports decrease in pain, ability to dress and bathe with no increase in pain and ability to sleep with no pain. Patient is independent with HEP and is appropriate for DC at this time. Plan of Care PT Services Indicated No
== END 2023-01-21 16:16 | disposition home or self-care (01) ==
LOC: CHSPT 13:20
PROVIDERS: Visit Provider Orthopaedic Surgery
DX: M75.01 Adhesive capsulitis of right shoulder (principal)
CPT/HCPCS: 97014; 97110; 97140; 97161; G0283

== ENCOUNTER 2023-01-31 17:54 | Emergency (ER) | payer OTHER, SELFPAY ==
--- NOTE | ~2023-01-31 | XR_ITS ---
EXAM: XR foot LT min 3V DATE: 01/31/2023 18:43 HISTORY: fall YESSTERDAY, TOP OF FOOT SWOLLEN . COMPARISON: None available. FINDINGS: Normal mineralization. No fracture or dislocation. No lytic or blastic lesion. Joint space s are maintained. No erosion or periosteal change. Soft tissues within normal limits. IMPRESSION: No acute osseous finding in the left foot. Reviewed, dictated and finalized at location K.
[2023-01-31 18:30] VITALS: BP 128/105; PULSE 88; RESP 14; TEMP 36.5; O2SAT 94
[2023-01-31 20:21] VITALS: BP 125/79; PULSE 79; RESP 16; TEMP 36.8; O2SAT 97
--- NOTE | 2023-01-31 21:18 | ED.LOWEXIN ---
HPI - Extremity Injury (Lower) General Chief Complaint: Extremity Injury, Lower Stated Complaint: left foot injury, fell from bed Time Seen by Provider: 01/31/23 21:06 Source: patient and RN notes reviewed Mode of arrival: ambulatory Limitations: no limitations History of Present Illness HPI Narrative: This is a 57 year old female with history of chronic pain who presents for evaluation of left foot pain. PAtient states she accidentally fell out of bed yesterday morning. She injuries her left foot and she has bruising to the top of her foot. She takes percocet and ibuprofen for her chronic back pain. Her last dose of ibuprofen was this morning. She denies LOC, headache. She report she fell forward but she did not break her glasses. She denies chronic anticoagulation. She reports bruising to her left knee but denies pain. She has bruising to right aguilera but denies pain with ambulation. Related Data Home Medications Medication Instructions Recorded Confirmed cetirizine 10 mg tablet (Zyrtec) 10 mg PO DAILY 02/14/20 01/12/23 diphenhydramine HCl 25 mg tablet 25 mg PO TID PRN 02/14/20 01/12/23 (Benadryl Allergy) melatonin 5 mg tablet mg PO .at night PRN sleep 02/14/20 01/12/23 cholecalciferol (vitamin D3) 50 50 mcg PO DAILY 12/01/22 01/12/23 mcg (2,000 unit) capsule docusate sodium 50 mg capsule 10 mg PO DAILY 12/01/22 01/12/23 (Stool Softener) famotidine 10 mg tablet (Acid 10 mg PO DAILY 12/01/22 01/12/23 Airport Operations Supervisor (famotidine)) Allergies Allergy/AdvReac Type Severity Reaction Status Date / Time bee venom protein (honey bee) Allergy Severe Anaphylaxis Verified 01/12/23 10:28 clarithromycin Allergy Severe Rash Verified 01/12/23 10:28 Penicillins Allergy Severe Anaphylaxis Verified 01/12/23 10:28 Review of Systems Review of Systems: All systems reviewed & are unremarkable except as noted in HPI and below PMFSH Past Medical History Medical History Adhesive capsulitis of right shoulder Allergies Anxiety disorder Asthma Bilateral leg numbness Bulging discs Depression Endometriosis Hyperlipidemia Hypothyroidism Lumbar degenerative disc disease Osteoarthritis Osteoporosis Post hysterectomy menopause Spondylosis Tobacco abuse UTI (urinary tract infection) Surgical History Surgical History History of appendectomy History of endometrial ablation History of hysterectomy History of oophorectomy History of right knee surgery 2006- meniscal repair History of surgery on arm left arm- open compound fracture History of tonsillectomy and adenoidectomy Family History Family History Father Hypertension Family history of diabetes mellitus in first degree relative Other Carcinoma of colon Social History Social History Smoking packs per day: 0.5 Smoking cigarettes per day: 10.0 Years smoked: 37 Smoking pack-years: 18.50 Smoking status: Current every day smoker Tobacco type: cigarettes Second hand tobacco smoke exposure: Yes Alcohol intake: current Alcohol use details: rarely- wine Substance use: never Substance use type: does not use Lack of Transportation: YES Lack of Food: Never True Current Housing: Decline to Answer Concerned About Future Housing: Decline to Answer Difficulty Paying Gas/Electric Bills: No Difficulty Paying for Meds: No Currently Unemployed: No Education: Associate Degree Difficulty w/ Childcare or Family Care: No Living arrangements: alone Additional occupation/education comments: disabled Exam Const: General: no acute distress and alert Nutritional Appearance: well nourished Orientation/consciousness: patient oriented x3 Limitations: no limitations HENMT: Head: normal to inspection Eyes: EOM: EOMs intact jairon
[2023-01-31] MEDS: KETOROLAC (*BKC) 60 MG/2 ML VIAL IM (21:42)
== END 2023-01-31 21:45 | disposition home or self-care (01) ==
PROVIDERS: Emergency Provider General Practice; PCP Family Medicine
DX: S90.32XA Contusion of left foot, initial encounter (principal); F17.210 Nicotine dependence, cigarettes, uncomplicated; F41.9 Anxiety disorder, unspecified; J45.909 Unspecified asthma, uncomplicated; E03.9 Hypothyroidism, unspecified; M19.90 Unspecified osteoarthritis, unspecified site; W06.XXXA Fall from bed, initial encounter
CPT/HCPCS: 73630; 96372; 99283; J1885

== ENCOUNTER 2023-04-11 08:58 | Outpatient (CLI) | payer OTHER, MEDICAID, SELFPAY ==
[2023-04-11 09:55] LABS: Alanine Aminotransferase 41 U/L (6-35); Albumin Level 4.4 g/dL (3.5-5.1); Alkaline Phosphatase 89 U/L (38-126); Anion Gap 7 mmol/L (8-16); Aspartate Amino Transferase 52 U/L (14-36); Bilirubin,Total 0.6 mg/dL (0.2-1.3); Blood Urea Nitrogen 11 mg/dL (7-17); Calcium 9.5 mg/dL (8.4-10.2); Carbon Dioxide 29 mmol/L (22-30); Chloride 104 mmol/L (98-107); Cholesterol 134 mg/dL (0-200); Estimated Glomerular Filt Rate > 60; Glucose 125 mg/dL (65-110); HDL Direct 33 mg/dL; Sodium 140 mmol/L (137-145); Triglycerides 178 mg/dL (<150)
[2023-04-11 10:07] LABS: LDL Cholesterol Direct 74 mg/dL
[2023-04-11 10:47] LABS: Hemoglobin A1C 5.8 % (<5.7)
== END 2023-04-11 08:59 | disposition home or self-care (01) ==
PROVIDERS: PCP Nurse Practitioner; Visit Provider Nurse Practitioner
DX: E78.5 Hyperlipidemia, unspecified (principal); E03.9 Hypothyroidism, unspecified; E66.3 Overweight; Z79.899 Other long term (current) drug therapy
CPT/HCPCS: 36415; 80053; 80061; 83036; 84443

== ENCOUNTER 2023-06-14 14:44 | Outpatient (CLI) | payer OTHER, SELFPAY ==
--- NOTE | ~2023-06-14 | MR_ITS ---
MRI of the lumbar spine Clinical History: Degenerative disc disease Technique: Axial T2-weighted images, and sagittal T1-weighted, T2-weighted, and T2 fat-sat images wer e acquired. COMPARISON: 10/27/2021 Findings: There is no fracture or subluxation of the lumbar spine. Vertebral bodies maintain normal h eight and alignment. No bone marrow signal abnormality seen. At L1-L2, there is no disc bulge or herniation. There is mild facet arthropathy. No central canal sukhdeep nosis or neural foraminal narrowing. At L2-L3, there is mild disc bulge with mild facet arthropathy. No central canal stenosis or neural f oraminal narrowing. L3-L4, there is degenerative disc narrowing with mild disc bulge and mild to moderate facet arthropat hy. No central canal stenosis. Neural foramina are preserved. At L4-L5, there is mild disc bulge with mild facet arthropathy. No central canal stenosis or neural f oraminal narrowing. At L5-S1, there is no disc bulge or herniation. There is mild facet arthropathy. No central canal sukhdeep nosis or neural foraminal narrowing. Paravertebral soft tissues are unremarkable. Impression: Mild degenerative spondylosis, as above. Reviewed, dictated and finalized at location . E REMOVALIST Impression: Mild degenerative spondylosis, as above.
== END 2023-06-14 14:45 | disposition home or self-care (01) ==
PROVIDERS: PCP Nurse Practitioner; Visit Provider Nurse Practitioner
DX: M51.36 Other intervertebral disc degeneration, lumbar region (principal); G89.29 Other chronic pain; R20.0 Anesthesia of skin; M47.896 Other spondylosis, lumbar region
CPT/HCPCS: 72148

== ENCOUNTER 2023-07-01 13:35 | Outpatient (CLI) | payer OTHER, SELFPAY ==
--- NOTE | ~2023-07-01 | XR_ITS ---
EXAMINATION: XR chest 2V 07/01/2023 14:41 INDICATION: Productive cough for 2 weeks PROCEDURE: 2 view chest COMPARISON: 02/18/2021 FINDINGS: The lungs are clear. Chronic apical pleural thickening/scarring. The cardiomediastinal silh ouette is within normal limits. There are no pleural effusions. There is no pneumothorax suspected. IMPRESSION: 1: NO ACUTE CARDIOPULMONARY DISEASE. Reviewed, dictated and finalized at location A. ERENCE INTERPRETER
== END 2023-07-01 13:36 | disposition home or self-care (01) ==
PROVIDERS: PCP Nurse Practitioner; Visit Provider Nurse Practitioner
DX: R05.9 Cough, unspecified (principal)
CPT/HCPCS: 71046

== ENCOUNTER 2023-08-04 12:59 | Outpatient (CLI) | payer OTHER, SELFPAY ==
--- NOTE | ~2023-08-04 | CT_ITS ---
EXAMINATION: CT pelvis wo con DATE: 08/04/2023 13:33 INDICATION: Sacrococcygeal disorders TECHNIQUE: Computed tomography (CT) of the pelvis was performed without intravenous contrast. The dos e-length product was 446.69 mGy-cm. COMPARISON: CT dated 04/28/2005 FINDINGS: Nonobstructive bowel pattern. There is atherosclerosis of the aorta without aneurysm. No abnormal pelvic masses or fluid collection s. Bladder is unremarkable. There is mild lower lumbar spondylosis. No sacral fracture is identified. Sacroiliac joints are symmetric. Pelvic rings are intact. IMPRESSION: 1. No acute bone or joint abnormality. Reviewed, dictated and finalized at location B.
== END 2023-08-04 13:00 | disposition home or self-care (01) ==
LOC: ANHIMG 13:00
PROVIDERS: PCP Nurse Practitioner; Visit Provider Physician Assistant
DX: M53.3 Sacrococcygeal disorders, not elsewhere classified (principal)
CPT/HCPCS: 72192

== ENCOUNTER 2023-11-02 10:17 | Outpatient (CLI) | payer OTHER, SELFPAY ==
--- NOTE | ~2023-11-02 | XR_ITS ---
3 VIEWS LUMBAR SPINE Ordering provider: Fuad London APRN History: . fell, back pain, RT SIDE WORSE. HX L3 FX . Comparison: March 30, 2021 FINDINGS: VERTEBRAL BODIES: No visible fracture or subluxation. DISK SPACES: Narrowing of the disc spaces L2-L3, L3-L4, L4-L5 and L5-S1. SOFT TISSUES: Normal. The right kidney appears smaller than the left. Further evaluation advised. IMPRESSION: No acute osseous abnormality lumbar spine. Multilevel degenerative disc disease. Reviewed, dictated and finalized at location A.
[2023-11-02 10:50] LABS: Alanine Aminotransferase 24 U/L (6-35); Albumin Level 4.7 g/dL (3.5-5.1); Alkaline Phosphatase 71 U/L (38-126); Anion Gap 7 mmol/L (4-12); Aspartate Amino Transferase 31 U/L (14-36); Bilirubin,Total 0.9 mg/dL (0.2-1.3); Blood Urea Nitrogen 14 mg/dL (7-17); Calcium 9.4 mg/dL (8.4-10.2); Carbon Dioxide 27 mmol/L (22-30); Chloride 107 mmol/L (98-107); Cholesterol 104 mg/dL (0-200); Estimated Glomerular Filt Rate > 60; Glucose 107 mg/dL (65-110); HDL Direct 37 mg/dL; Potassium 3.9 mmol/L (3.4-5.0); Sodium 141 mmol/L (137-145); Triglycerides 150 mg/dL (<150)
[2023-11-02 11:00] LABS: LDL Cholesterol Direct 56 mg/dL
[2023-11-02 11:07] LABS: Free T4 Free Thyroxine 1.08 ng/mL (0.78-2.19)
[2023-11-02 11:21] LABS: Thyroid Stimulating Hormone 0.952 uIU/mL (0.465-4.680)
== END 2023-11-02 10:18 | disposition home or self-care (01) ==
LOC: ANHLAB 10:22
PROVIDERS: PCP Nurse Practitioner; Visit Provider Nurse Practitioner
DX: E78.5 Hyperlipidemia, unspecified (principal); Z79.899 Other long term (current) drug therapy; E03.9 Hypothyroidism, unspecified; M54.50 Low back pain, unspecified
CPT/HCPCS: 36415; 72100; 80053; 80061; 84439; 84443

== ENCOUNTER 2023-11-15 14:34 | Outpatient (CLI) | payer OTHER, SELFPAY ==
[2023-11-15 15:11] LABS: Basophils Absolute Auto 0.1 K/mm3 (0.0-0.1); Basophils Percent Auto 0.7 % (0.2-1.2); Eosinophils Absolute Auto 0.2 K/mm3 (0-0.3); Eosinophils Percent Auto 1.4 % (0-4.4); Hematocrit 45.1 % (37.0-47.0); Hemoglobin 15.2 g/dL (12.0-15.0); Immature Granulocyte Absolute 0.05 K/mm3 (0.00-0.031); Immature Granulocyte Percent A 0.4 % (0-0.5); Lymphocytes Absolute Auto 3.53 K/mm3 (0.9-3.2); Lymphocytes Percent Auto 26.4 % (18.3-44.2); Mean Corpuscular HGB Conc 33.7 g/dl (32-36); Mean Corpuscular Hemoglobin 32.5 pg (26-34); Mean Corpuscular Volume 96.6 fl (80-100); Mean Platelet Volume 10.3 fl (7.4-10.4); Monocytes Absolute Auto 0.9 K/mm3 (0.1-0.6); Monocytes Percent Auto 6.4 % (2.6-8.5); Neutrophils Absolute Auto 8.7 K/mm3 (1.3-6.7); Neutrophils Percent Auto 64.7 % (45.5-73.1); Platelet Count Result 195 k/mm3 (150-375); Red Blood Count 4.67 M/mm3 (4.2-5.4); White Blood Count 13.4 K/mm3 (4.5-10.0)
[2023-11-17 00:09] LABS: Amphetamines NEGATIVE ng/mL (<500); Barbiturates NEGATIVE ng/mL (<300); Benzodiazepines NEGATIVE ng/mL (<100); Cocaine Metabolite NEGATIVE ng/mL (<150); Marijuana Metabolite NEGATIVE ng/mL (<20); Methadone Metabolite NEGATIVE ng/mL (<100); Opiates POSITIVE ng/mL (<100); Oxidant NEGATIVE mcg/mL (<200); pH 7.6 (4.5-9.0)
== END 2023-11-15 14:35 | disposition home or self-care (01) ==
PROVIDERS: PCP Nurse Practitioner Family; Visit Provider Nurse Practitioner Family
DX: R52 Pain, unspecified (principal); J45.909 Unspecified asthma, uncomplicated; Z72.0 Tobacco use; Z79.899 Other long term (current) drug therapy; Z76.89 Persons encountering health services in other specified circumstances
CPT/HCPCS: 36415; 80307; 85025; 85610

== ENCOUNTER 2023-12-21 10:28 | Outpatient (CLI) | payer OTHER, SELFPAY ==
--- NOTE | ~2023-12-21 | DEXA_ITS ---
Bone Density Report Name: JOSS COHEN Age: 58 Sex: Female Ethnicity: White Date of : 1965 Indication: postmenopausal osteoporosis; prior fracture; asthma or emphysema; hysterectomy; Referring Provider: SABINA BOWIE Study: Bone densitometry was performed. Exam Date: December 21, 2023 Accession number: [id number] Bone Density: Region BMD T-score Z-score Classification AP Spine(L1-L4) 0.864 -1.7 -0.4 Osteopenia Femoral Neck (Left) 0.589 -2.3 -1.1 Osteopenia Total Hip (Left) 0.775 -1.4 -0.5 Osteopenia Femoral Neck (Right) 0.627 -2.0 -0.8 Osteopenia Total Hip (Right) 0.747 -1.6 -0.8 Osteopenia Total Hip Mean 0.761 -1.5 -0.7 Osteopenia World Health Organization criteria for BMD impression classify patients as: Normal (T-score at or above -1.0), Osteopenia (T-score between -1.0 and -2.5), or Osteoporosis (T-score at or below -2.5). 10-year Fracture Risk: FRAX not reported because: Prior hip or vertebral fracture Previous Exams: Region Exam Age BMD T-score BMD Change BMD Change Date g/cm2 vs Baseline vs Previous AP Spine (L1-L4) 12/21/2023 58 0.864 -1.7 0.097 (12.7%)* 0.097 (12.7%)* 05/22/2020 54 0.766 -2.6 Total Hip(Left) 12/21/2023 58 0.775 -1.4 0.033 (4.5%)* 0.033 (4.5%)* 05/22/2020 54 0.741 -1.6 Total Hip(Right) 12/21/2023 58 0.747 -1.6 -0.052 (-6.5%) -0.052 (-6.5%) 12/21/2023 58 0.799 -1.2 *Denotes significance at 95% confidence level, LSC for AP Spine = 0.022 g/cm2, LSC for Total Hip = 0.027 g/cm2 Clinical Information Provided by Patient: Have had a previous hip or vertebral fracture Has had a low trauma fracture Smokes Has used the following medications: Vitamin D, Calcium Has the following medical conditions: Asthma or Emphysema, Hysterectomy Patient maximum height was 64.0 Menopause Age: 43 No regular weight bearing exercise Drinks caffeinated beverages Onset of menses at age 14 Number of children 0 Impression: The patient has low bone mass, based on the Left Femoral Neck T-score. The patient has risk factors, including: smoking, previous fracture. The BMD for the Total Hip(Right) decreased, changing by -6.5% since the last DXA exam. Discussion: INCREASED RISK OF FRACTURE DUE TO HISTORY OF FRACTURE. The patient's previous fracture puts the patient at high risk of a future fracture. In untreated patients, the risk of osteoporotic fracture increases approximately two-fold for each 1.0 SD decre
== END 2023-12-21 10:29 | disposition home or self-care (01) ==
LOC: ANHIMG 10:30
PROVIDERS: PCP Nurse Practitioner Family; Visit Provider Nurse Practitioner Family
DX: M81.0 Age-related osteoporosis without current pathological fracture (principal); Z13.820 Encounter for screening for osteoporosis; M85.88 Other specified disorders of bone density and structure, other site; M85.852 Other specified disorders of bone density and structure, left thigh; M85.851 Other specified disorders of bone density and structure, right thigh
CPT/HCPCS: 77080

== ENCOUNTER 2024-03-14 13:35 | Outpatient (CLI) | payer OTHER, MEDICAID, SELFPAY ==
--- NOTE | ~2024-03-14 | MM_ITS ---
EXAMINATION: MM screening [facility] BI w arcenio HISTORY: Screening TECHNIQUE: Craniocaudal and mediolateral oblique 3-D tomosynthesis images were obtained and synthetic 2-D images were generated. CAD analysis was submitted and interpreted. COMPARISON: Comparison to multiple prior studies sequentially, with oldest reviewed study dated 08/01. BREAST PARENCHYMAL COMPOSITION: Not dense: There are scattered areas of fibroglandular density. FINDINGS: There is no evidence of suspicious mass, calcification, or architectural distortion to sugg est malignancy in either breast. There has been no suspicious interval change. IMPRESSION: 1. No mammographic evidence of malignancy. 2. Recommend routine screening mammography in one year. BI-RADS Category 1: Negative Reviewed, dictated and finalized at location B. MOBILE DAMAGE APPRAISER
== END 2024-03-14 13:36 | disposition home or self-care (01) ==
LOC: ANHIMG 13:37
PROVIDERS: PCP Nurse Practitioner Family; Visit Provider Nurse Practitioner Family
DX: Z12.31 Encounter for screening mammogram for malignant neoplasm of breast (principal)
CPT/HCPCS: 77063; 77067

== ENCOUNTER 2024-07-27 21:44 | Emergency (ER) | payer OTHER, MEDICAID, SELFPAY ==
--- NOTE | ~2024-07-27 | CT_ITS ---
History: Fall PROCEDURE: CT head without contrast. COMPARISON: None TECHNIQUE: Axial imaging of the head performed from the skull base to the vertex without IV contrast. Sagittal a nd coronal reformations obtained. DLP: 605 mGy-cm FINDINGS: The ventricles are normal in size, shape and position. There is no mass, mass effect or midline shift. There is no abnormal extra-axial fluid collection or intracranial hemorrhage. Visualized paranasal sinuses are clear. The mastoid air cells are well aerated. No acute displaced fractures within the overlying cranium. Impression: No acute intracranial hemorrhage or suspicious mass effect. Reviewed, dictated and finalized at location A. Impression: No acute intracranial hemorrhage or suspicious mass effect.
--- NOTE | ~2024-07-27 | CT_ITS ---
History: Fall PROCEDURE: CT cervical spine without intravenous contrast. COMPARISON: None TECHNIQUE: Multiple contiguous axial images of the cervical spine were performed without the administration of i ntravenous contrast. DLP: 338 mGy-cm FINDINGS: Straightening and slight reversal of the normal curvature of the cervical spine is identified, likely muscular in origin. No acute fractures are present. Biapical scarring No soft tissue abnormality is present. The airway is unremarkable. Impression: Straightening and slight reversal of the normal curvature of the cervical spine, likely muscular in o rigin. No acute fracture. Reviewed, dictated and finalized at location A. Impression: Straightening and slight reversal of the normal curvature of the cervical spine , likely muscular in origin. No acute fracture.
[2024-07-27 21:44] VITALS: BP 120/79; PULSE 87; RESP 18; TEMP 36.1; O2SAT 97
--- OUTSIDE RECORDS SUMMARY | 2024-07-27 21:46 | XMS_ITS | CONTINUITY OF CARE DOCUMENT ---
Author Name florentino good Address Unknown Organization [facility] Address [address] [place] [address] Phone [phone] Care Team Providers Care [employer] Controller Name Role Phone Sukhi Booker MD Unavailable INSURANCE PROVIDERS Payer name Policy type / Coverage type [place] red libertarian ID [facility] [id number]
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
--- NOTE | 2024-07-27 22:09 | PC.NURSE ---
PATIENT BEING TRANSPORTED TO CT VIA STRETCHER. CINTHYA YOUNG, CLEANED LEFT LOWER LEG WOUND
--- OUTSIDE RECORDS SUMMARY | 2024-07-27 22:12 | XMS_ITS | CONTINUITY OF CARE DOCUMENT ---
Author Name florentino good Address Unknown Organization [facility] Address [address] [place] [address] Phone [phone] Care Team Providers Care Macadam Raker Name Role Phone Sukhi Booker MD Unavailable INSURANCE PROVIDERS Payer name Policy type / Coverage type [place] red alliance party ID [facility] [id number]
[2024-07-27 22:31] VITALS: BP 118/74; PULSE 80; RESP 18; O2SAT 92
[2024-07-27] MEDS: HYDROcodone/acetaminophen (*CRX) 10-325 MG TABLET 1 TAB PO (22:42)
[2024-07-27] MEDS: TETANUS,DIPHTHERIA,AC PERTUSSIS ADULT 0.5 ML (ADACEL) IM (22:42)
[2024-07-27 23:28] VITALS: BP 116/77; PULSE 82; RESP 16; O2SAT 92
[2024-07-27 23:30] VITALS: BP 116/79; PULSE 84; RESP 16; O2SAT 93
--- NOTE | 2024-07-27 23:41 | PC.NURSE ---
STAND BY ASSIST WHILE DR MATAMOROS PLACED JASSON. 6 TO SCALP, 3 TO LEFT LOWER LEG. BACITRACIN APPLIED POST JASSON. LEFT LOWER LEG WOUND COVERED WITH BANDAID
--- NOTE | 2024-07-27 23:44 | PC.NURSE ---
PATIENT REQUESTED THAT FRIEND JENNIFFER BE CALLED AT [phone]. DONE. HE IS ON THE WAY TO [facility] AIDE PATIENT
== END 2024-07-28 00:07 | disposition home or self-care (01) ==
PROVIDERS: Emergency Provider Emergency Medicine; PCP Nurse Practitioner Family
DX: S01.01XA Laceration without foreign body of scalp, initial encounter (principal); E03.9 Hypothyroidism, unspecified; E78.5 Hyperlipidemia, unspecified; F17.210 Nicotine dependence, cigarettes, uncomplicated; Z23 Encounter for immunization; W06.XXXA Fall from bed, initial encounter; Y92.009 Unspecified place in unspecified non-institutional (private) residence as the place of occurrence of the external cause
CPT/HCPCS: 12001; 70450; 72125; 90471; 90715; 99284; A9270

== ENCOUNTER 2024-09-11 09:11 | Outpatient (CLI) | payer OTHER, SELFPAY ==
[2024-09-11 09:29] LABS: Basophils Percent Auto 0.9 % (0.0-1.0); Eosinophils Absolute Auto 0.31 K/mm3 (0.02-0.50); Eosinophils Percent Auto 2.8 % (1.0-6.0); Hematocrit 42.9 % (35.0-49.0); Hemoglobin 14.1 g/dL (12.0-15.0); Immature Granulocyte Absolute 0.04 K/mm3 (0.00-0.00); Immature Granulocyte Percent A 0.4 % (0.0-0.0); Lymphocytes Absolute Auto 3.33 K/mm3 (1.10-4.50); Lymphocytes Percent Auto 29.8 % (18.0-42.0); Mean Corpuscular HGB Conc 32.9 g/dL (32-36); Mean Corpuscular Hemoglobin 30.6 pg (27.0-31.0); Mean Corpuscular Volume 93.1 fL (78.0-102.0); Mean Platelet Volume 9.8 fl (9.2-11.8); Monocytes Absolute Auto 0.92 K/mm3 (0.10-0.90); Monocytes Percent Auto 8.2 % (2.0-11.0); Neutrophils Absolute Auto 6.49 K/mm3 (1.70-7.20); Neutrophils Percent Auto 57.9 % (50.0-70.0); Platelet Count Result 180 K/mm3 (150-420); Red Blood Count 4.61 M/mm3 (4.20-5.40); Red Cell Distribution Width 11.9 % (11.6-14.4); White Blood Count 11.2 K/mm3 (4.8-10.8)
[2024-09-11 09:42] LABS: Amphetamine Screen Urine Negative (Negative); Barbiturate Screen Urine Negative (Negative); Benzodiazepines Screen Urine Negative (Negative); Cannabinoid Screen Urine Negative (Negative); Cocaine Screen Urine Negative (Negative); Methadone Screen Urine Negative (Negative); Opiate Screen Urine Positive (Negative); Phencyclidine Screen Urine Negative (Negative)
--- OUTSIDE RECORDS SUMMARY | 2024-09-11 09:46 | XMS_ITS | Patient Health Record ---
Author Organization [facility] [employer] Address [address] [place] [address] Care Team Providers Care Waiter/Waitress Tourist Class Name Role Phone WINTER Cecilia SPENCER Primary Care Provider Unavailab Maria Esther Preciado Unavailable [phone] Allergies Allergen (clinical drug ingredient) Drug/Non Drug Allergy documented on EMR Reaction Allergy Type Onset Date Status Biax (uncoded) Unknown Allergy Activ e Honey Bee Venom Unknown Drug Allergy A ctive clarithromycin Clarithromycin Unknown Drug Allergy Active Penicillin Unknown Drug Allergy Active Reason For Referral Reason Eval + Treat Diagnosis 1 Anxiety disorder, un specified (F41.9) Referring Provider First Name Dmitriy Referring Provider Last Name Tan ARTHUR Referring Provider Speciality Internal M edicine Referred Organization [facility] [employer] [facility] Referred Provider Chucky Holly Referred Address [address], [place],[address], Referred Provider Specialty Psychiatry Referral Priority Routine Social History Sex Assigned At : Social History Observation Description Sex Assigned At Female Problems Problem Type SNOMED Code ICD Code Onset Dates Problem Status W/U Status Risk Notes Problem Anxiety disorder (888763123) Anxiety disorder, unspecified (F41.9) Active confirmed Encounters Encounter Location Date Provider Diagnosis [employer] [address] [place] [address] 11/17/2023 Maria Esther Hannah Plan Of Treatment No Information Insurance Providers Payer Name Payer Address Payer Phone Subscriber Number Group Number Insured Name Patient Relationship to Insured Coverage Start Date Coverage End Date [employer] Medicare Replacement/ Advantage - Hmo [address] [place] [phone] [id number] Dominique [place] Self - patient is the insured [place] [address] [address] [place] [address] [id number] [place] Self - patient is the insured Medical (General) History Medical History History ICD Code Allergy Anxiety Asthma Depression HLD Hypothyroidism OA Osteoporosis Tobacco use UTI
--- OUTSIDE RECORDS SUMMARY | 2024-09-11 09:46 | XMS_ITS | CONTINUITY OF CARE DOCUMENT ---
Author Name florentino good Address Unknown Organization [facility] Address [address] [place] [address] [address] [place] [address] Phone [phone] Care Team Providers Care Pumper Hand Name Role Phone Sukhi Booker MD Unavailable INSURANCE PROVIDERS Payer name Policy type / Coverage type [place] red republican ID [facility] [id number]
[2024-09-11 10:21] LABS: Alanine Aminotransferase 28 U/L (14-59); Albumin Level 4.1 g/dL (3.4-5.0); Alkaline Phosphatase 98 U/L (46-116); Anion Gap 5 mmol/L (4-12); Aspartate Amino Transferase 31 U/L (15-37); Bilirubin,Total 0.3 mg/dL (0.00-1.00); Blood Urea Nitrogen 15 mg/dL (7-18); Calcium 9.5 mg/dL (8.5-10.1); Carbon Dioxide 33 mmol/L (21-32); Chloride 101 mmol/L (98-108); Cholesterol 152 mg/dL (0-200); Estimated Glomerular Filt Rate > 60; Glucose 87 mg/dL (70-99); HDL Direct 46 mg/dL (40-60); LDL Cholesterol Calculated 67 mg/dL (<130); Osmolality Calculated 287 mOsm/kg (285-295); Potassium 4.6 mmol/L (3.5-5.1); Sodium 139 mmol/L (136-145); Total Protein 6.8 g/dL (6.4-8.2); Triglycerides 196 mg/dL (0-150)
== END 2024-09-11 09:12 | disposition home or self-care (01) ==
LOC: CHSLAB 09:17
PROVIDERS: PCP Nurse Practitioner Family; Visit Provider Nurse Practitioner Family
DX: Z79.899 Other long term (current) drug therapy (principal); F41.9 Anxiety disorder, unspecified; E78.5 Hyperlipidemia, unspecified; E03.9 Hypothyroidism, unspecified; M54.50 Low back pain, unspecified; F32.A Depression, unspecified; J45.909 Unspecified asthma, uncomplicated
CPT/HCPCS: 36415; 80053; 80061; 80307; 83036; 84443; 85025

== ENCOUNTER 2025-01-02 16:36 | Emergency (ER) | payer OTHER, SELFPAY ==
--- NOTE | 2025-01-02 16:42 | ED.GENADULT ---
HPI - General Adult General Chief complaint: Urogenital-Female Stated complaint: UTI SYMPTOMS Source: patient Mode of arrival: wheelchair Limitations: no limitations History of Present Illness HPI narrative: Pt is a 59 y/o female presenting with c/o urinary symptoms. Pt reports pause in urine stream and minor burning with urination this afternoon. No tx initiated [employer]. NO additional complaints. Related Data Home Medications ?Medication ?Instructions ?Recorded ?Confirmed ?Last Taken ?Type cetirizine 10 mg tablet (Zyrtec) 10 mg PO DAILY 02/14/20 12/04/24 Unknown History diphenhydramine HCl 25 mg tablet 25 mg PO TID PRN 02/14/20 12/04/24 Unknown History (Benadryl Allergy) melatonin 5 mg tablet mg PO .at night PRN sleep 02/14/20 12/04/24 Unknown History cholecalciferol (vitamin D3) 50 50 mcg PO DAILY 12/01/22 12/04/24 Unknown History mcg (2,000 unit) capsule docusate sodium 50 mg capsule 10 mg PO DAILY 12/01/22 12/04/24 Unknown History (Stool Softener) famotidine 10 mg tablet (Acid 10 mg PO DAILY 12/01/22 12/04/24 Unknown History Cattle Trader (famotidine)) hydrocodone 10 mg-acetaminophen 1 tablet PO Q6H PRN 05/10/24 12/04/24 Unknown History 325 mg tablet tizanidine 2 mg tablet mg 01/02/25 Unknown History Allergies Allergy/AdvReac Type Severity Reaction Status Date / Time bee venom protein (honey bee) Allergy Severe Anaphylaxis Verified 01/02/25 16:40 clarithromycin Allergy Severe Rash Verified 01/02/25 16:40 Penicillins Allergy Severe Anaphylaxis Verified 01/02/25 16:40 Biaxin Allergy Anaphylaxis Uncoded 01/02/25 16:40 Review of Systems Review of Systems: CONSTITUTIONAL: Denies body aches, fever, chills, or sweats. EYES: Denies visual changes, redness, or discharge. ENT: Denies rhinorrhea, congestion, sore throat, or otalgia. CARDIOVASCULAR: Denies chest pain, palpitations, or edema. RESPIRATORY: Denies cough or dyspnea. GASTROINTESTINAL: Denies abdominal pain, nausea, vomiting, or diarrhea. SKIN: Denies rash, itching, or wounds. NEUROLOGIC: Denies headache, numbness, tingling, or weakness. PSYCH: Denies depression or anxiety. All systems reviewed & are unremarkable except as noted in HPI and below PMFSH Past Medical History Medical History Adhesive capsulitis of right shoulder Spondylosis Bulging discs Endometriosis Allergies Hypothyroidism Anxiety disorder Lumbar degenerative disc disease Bilateral leg numbness Depression Tobacco abuse Hyperlipidemia Post hysterectomy menopause Asthma Osteoarthritis Osteoporosis UTI (urinary tract infection) Surgical History Surgical History History of hysterectomy History of right knee surgery 2006- meniscal repair History of endometrial ablation History of oophorectomy History of surgery on arm left arm- open compound fracture History of appendectomy History of tonsillectomy and adenoidectomy Family History Family History Father Hypertension Family history of diabetes mellitus in first degree relative Other Carcinoma of colon Social History Social History Smoking packs per day: 0.5 Smoking cigarettes per day: 10.0 Years smoked: 37 Smoking pack-years: 18.50 Smoking status: Current every day smoker Tobacco type: cigarettes Second hand tobacco smoke exposure: Yes Alcohol intake: current Alcohol use details: rarely- wine Substance use: never Substance use type: does not use Lack of Transportation: YES Lack of Food: Never True Current Housing: I Do Not Have Housing Concerned About Future Housing: YES Difficulty Paying Gas/Electric Bills: No Difficulty Paying for Meds: No Currently Unemployed: No Education: Associate Degree Difficulty w/ Childcare or Family Care: No Living arrangements: alone Additional occupation/education comments: disabled Gender identity (if verbalized by the patient): Female Sexual Orientation (if Verbalized by the Patient): Straight or Heterosexual Spiritual care concerns: No Agree to blood products: Yes Exam Narrative: GENERAL: Well-appearing, well-nourished, and in no acute distress. HEAD: Normocephalic, atraumatic. EYES: EOMI. No redness or drainage. Conjunctivae normal. NECK: Normal AROM. Supple. CHEST: No respiratory distress. HEART: Regular rate ABDOMEN: Soft, nontender, nondistended, normal active bowel sounds.no CVAT EXTREMITIES: Normal range of motion. No edema. SKIN: Warm, dry, no rash. Capillary refill normal. Normal skin turgor. NEURO: No focal deficits. Alert and oriented x3. Unable to assess gait--asked for wheelchair due to previous back injury PSYCH: Normal affect. No signs of depression or anxiety. Course Course Level of Care: Express Care Visit Vital Signs Vital signs: Vital Signs Temperature 97.6 F 01/02/25 16:50 Pulse Rate 104 H 01/02/25 16:50 Respiratory Rate 18 01/02/25 16:50 Blood Pressure 122/89 01/02/25 16:50 Pulse Oximetry 96 01/02/25 16:50 Oxygen Delivery Room Air 01/02/25 16:50 Temperature 97.6 F 01/02/25 16:50 Pulse Rate 104 H 01/02/25 16:50 Respiratory Rate 18 01/02/25 16:50 Blood Pressure 122/89 01/02/25 16:50 Pulse Oximetry 96 01/02/25 16:50 Oxygen Delivery Room Air 01/02/25 16:50 Medical Decision Making Vital Signs Vital Signs: Vital Signs Temperature 97.6 F 01/02/25 16:50 Pulse Rate 104 H 01/02/25 16:50 Respiratory Rate 18 01/02/25 16:50 Blood Pressure 122/89 01/02/25 16:50 Pulse Oximetry 96 01/02/25 16:50 Oxygen Delivery Room Air 01/02/25 16:50 Temperature 97.6 F 01/02/25 16:50 Pulse Rate 104 H 01/02/25 16:50 Respiratory Rate 18 01/02/25 16:50 Blood Pressure 122/89 01/02/25 16:50 Pulse Oximetry 96 01/02/25 16:50 Oxygen Delivery Room Air 01/02/25 16:50 Lab Data Labs: Lab Results 01/02/25 Range/Units 16:52 POC Urine Color Yellow POC Urine Clarity Clear POC Urine pH 5.5 POC Ur Specif [place] 1.010 POC Urine Protein 1+ (Negative) POC Ur Glucose (UA) Negative (Negative) POC Urine Ketones Negative (Negative) POC Urine Blood Trace (Negative) POC Urine Nitrite Negative (Negative) POC Urine Bilirubin Negative (Negative) POC Urine Urobilinogen 0.2 POC U Leukocyte Esteras Negative (Negative) Discharge Plan Discharge Clinical Impression: Dysuria Patient Disposition: Home Condition: Stable Instructions: Antibiotic Form, Dysuria (ED) Additional Instructions: Go straight to ER should your symptoms become worse or should any new symptoms develop Patient Language: Syriac Prescriptions: No Action tizanidine 2 mg tablet cetirizine [Zyrtec] 10 mg tablet 10 mg PO DAILY melatonin 5 mg tablet PO .at night PRN (Reason: sleep) diphenhydramine HCl [Benadryl Allergy] 25 mg tablet 25 mg PO TID PRN cholecalciferol (vitamin D3) 50 mcg (2,000 unit) capsule 50 mcg PO DAILY Stool Softener 50 mg capsule 10 mg PO DAILY famotidine [Acid Cattle Trader (famotidine)] 10 mg tablet 10 mg PO DAILY Trelegy Ellipta 100-62.5-25 mcg blister with device 1 inh inhalation DAILY Qty: 180 1RF fluticasone fur. 100 mcg-umeclid 62.5 mcg-vilant 25 mcg inhalat.powder 100-62.5-25 mcg blister with device 0RF hydrocodone-acetaminophen 10-325 mg tablet 1 tablet PO Q6H PRN Citracal Plus Bone Density 300-200-13.5 mg-unit-mg tablet 1 tablet PO .po Qty: 90 0RF alendronate [Fosamax] 70 mg tablet 70 mg PO WEEKLY Qty: 12 3RF albuterol sulfate 90 mcg/actuation HFA aerosol inhaler 2 inh inhalation Q4H PRN (Reason: shortness of breath or wheezing) Qty: 8.5 5RF albuterol sulfate 2.5 mg /3 mL (0.083 %) solution for nebulization 2.5 mg inhalation Q4-6H PRN (Reason: shortness of breath or wheezing) Qty: 180 2RF gabapentin 600 mg tablet See Rx Instructions .ROUTE .COMPLEX Qty: 180 1RF Dose Instruction: TAKE 1 TABLET BY MOUTH TWICE A DAY Rx Instructions: TAKE 1 TABLET BY MOUTH TWICE A DAY duloxetine [Cymbalta] 30 mg capsule,delayed release(DR/EC) 60 mg PO DAILY Qty: 180 1RF levothyroxine 25 mcg tablet See Rx Instructions .ROUTE .COMPLEX Qty: 90 1RF Dose Instruction: TAKE ONE TABLET BY MOUTH ONCE DAILY Rx Instructions: TAKE ONE TABLET BY MOUTH ONCE DAILY bupropion HCl 75 mg tablet See Rx Instructions .ROUTE .COMPLEX Qty: 90 1RF Dose Instruction: TAKE ONE TABLET BY MOUTH ONCE DAILY Rx Instructions: TAKE ONE TABLET BY MOUTH ONCE DAILY lidocaine 5 % adhesive patch,medicated 1 patch topical DAILY Qty: 30 6RF Rx Instructions: leave on most painful area for up to 12 hrs tizanidine 2 mg capsule 2 mg PO TID PRN (Reason: muscle spasticity) Qty: 90 5RF rosuvastatin 10 mg tablet See Rx Instructions .ROUTE .COMPLEX Qty: 90 1RF Dose Instruction: TAKE 1 TABLET BY MOUTH EVERY DAY Rx Instructions: TAKE 1 TABLET BY MOUTH EVERY DAY fluticasone propionate 50 mcg/actuation spray,suspension See Rx Instructions .ROUTE .COMPLEX Qty: 48 1RF Dose Instruction: SPRAY 2 SPRAYS INTRANASALLY DAILY ADMINISTER INTO EACH NOSTRIL Rx Instructions: SPRAY 2 SPRAYS INTRANASALLY DAILY ADMINISTER INTO EACH NOSTRIL potassium chloride 20 mEq tablet extended release 20 meq PO DAILY Qty: 90 1RF ibuprofen 800 mg tablet See Rx Instructions .ROUTE .COMPLEX Qty: 270 0RF Dose Instruction: TAKE 1 TABLET BY MOUTH THREE TIMES A DAY Rx Instructions: TAKE 1 TABLET BY MOUTH THREE TIMES A DAY Follow-up/Referrals: Cecilia Guy APRN [Primary Care Provider, Internal Medicine] - 01/03/25 Time of Disposition: 17:18
[2025-01-02 16:50] VITALS: BP 122/89; PULSE 104; RESP 18; TEMP 36.4; O2SAT 96
[2025-01-02 17:00] LABS: EDUAAPPEAR Clear; EDUABILI Negative (Negative); EDUABLOOD Trace (Negative); EDUACOLOR1 Yellow; EDUAGLUCOSE Negative (Negative); EDUAKETONE Negative (Negative); EDUALEUKO Negative (Negative); EDUANITRATE Negative (Negative); EDUAPH 5.5; EDUAPROTEIN 1+ (Negative); EDUASPGRAVITY 1.010; EDUAUROBILI 0.2
== END 2025-01-02 17:31 | disposition home or self-care (01) ==
PROVIDERS: Emergency Provider Registered Nurse; PCP Nurse Practitioner Family
DX: R30.0 Dysuria (principal); E03.9 Hypothyroidism, unspecified; E78.5 Hyperlipidemia, unspecified; F17.210 Nicotine dependence, cigarettes, uncomplicated
CPT/HCPCS: 81003; 87086; 99213; G0463

== ENCOUNTER 2025-02-27 14:45 | Outpatient (CLI) | payer OTHER, SELFPAY ==
--- NOTE | ~2025-02-27 | CT_ITS ---
CT lung screening INDICATION: Tobacco use. COMPARISON: None. TECHNIQUE: CT examination of the entire thorax without contrast was performed using low dose technique. Thin section axial, sagittal and coronal images were included to increase sensitivity for small lung nodules. FINDINGS: PULMONARY NODULES: There is no suspicious noncalcified pulmonary nodule. OTHER PULMONARY FINDINGS: There is centrilobular emphysema. There is calcified granuloma within the left lower lobe measured 8 mm. Calcified left hilar lymph node. No pathologically enlarged lymph nodes are present. Normal heart size. UPPER ABDOMEN AND PERIPHERAL SOFT TISSUE: 2.9 x 2 cm right hepatic lobe cyst is noted. OSSEOUS STRUCTURES: Bone window shows no aggressive blastic or lytic lesions. IMPRESSION: 1. Lung-RADS category 1: No nodules or definitely benign nodules. Recommendations: 1 or 2: Annual screening with low-dose CT in 12 months. 2. Centrilobular emphysematous changes are present. All CT scans at this facility are performed using low dose modulation techniques as appropriate to perform exam including the following: automated exposure control; use of iterative reconstruction technique; adjustment of the mA and/or kV according to patient size (this includes techniques or standardized protocols for targeted exams where dose is matched to indication/reason for exam). Reviewed, dictated and finalized at location S. IMPRESSION: 1. Lung-RADS category 1: No nodules or definitely benign nodules. Recommendations: 1 or 2: Annual screening with low-dose CT in 12 months. 2. Centrilobular emphysematous changes are present. All CT scans at this facility are performed using low dose modulation techniqu es as appropriate to perform exam including the following: automated exposure c ontrol; use of iterative reconstruction technique; adjustment of the mA and/or kV according to patient size (this includes techniques or standardized protocol s for targeted exams where dose is matched to indication/reason for exam).
== END 2025-02-27 14:46 | disposition home or self-care (01) ==
PROVIDERS: PCP Nurse Practitioner Family; Visit Provider Nurse Practitioner Family
DX: Z12.2 Encounter for screening for malignant neoplasm of respiratory organs (principal); Z87.891 Personal history of nicotine dependence
CPT/HCPCS: 71271